=== PATIENT | male | born 1965 | race Caucasian/White ===

== ENCOUNTER 2016-10-23 10:21 | Emergency (ER) | payer SELFPAY ==
[~2016-10-23] VITALS: Ht 165.1 cm; Wt 66.9 kg
[~2016-10-23 10:21] MED LIST: FLEXERIL10 MG PO; NORVASC5 MG PO; PRAVACHOL40 MG PO; TYLENOL WITH C1 EACH PO
[2016-10-23] MEDS ORDERED: NORCO 5/3251 TABLET PO (12:27)
[2016-10-23] MEDS ORDERED: ACYCLOVIR200 MG PO (12:27)
[2016-10-23 12:41] VITALS: BP 184/90
== END 2016-10-23 12:42 | disposition home or self-care (01) ==
LOC: EME 10:21
DX: B02.9 Zoster without complications (principal); I10 Essential (primary) hypertension; F17.200 Nicotine dependence, unspecified, uncomplicated
CPT/HCPCS: 99281; 99283

== ENCOUNTER 2017-04-20 10:05 | Inpatient (IN) | payer OTHER ==
[~2017-04-20] VITALS: Ht 165.1 cm; Wt 71.3 kg
[~2017-04-20 10:05] MED LIST changes: +ACYCLOVIR200 MG PO; +NORCO 5/3251 TABLET PO
[2017-04-20 10:40] LABS: HEMATOCRIT 45.7 % (38.0-50.0); HEMOGLOBIN 16.8 G/DL (12.5-16.6); MCH 33.9 PG (29.0-34.0); MCHC 36.8 G/DL (30.0-36.0); MCV 92.1 FL (86-99); PLATELET COUNT 337 K/uL (156-360); RBC DIS.WIDTH-CV 12.7 % (11.8-14.6); RBC DIS.WIDTH-SD 42.5 % (39-53); RED BLOOD COUNT 4.96 M/uL (4.00-5.50); WHITE BLOOD COUNT 9.2 K/uL (4.1-10.2)
[2017-04-20 11:37] LABS: CHLORIDE 96 MEQ/L (99-109); CREATININE 0.9 MG/DL (0.6-1.3); GFR ESTIMATE (CALCULATED) > 59 mL/min/ (58.99-99999); GLUCOSE 102 mg/dL (70-99); POTASSIUM 4.4 MEQ/L (3.7-5.4); SODIUM 134 MEQ/L (136-147); UREA NITROGEN (BUN) 13 mg/dL (9-23)
[2017-04-20 14:00] LABS: HDL CHOLESTEROL 43 MG/DL (Desirable>=40); LDL CHOLESTEROL 120 mg/dL (Desirable<100); NON-HDL CHOLESTEROL 158 mg/dL (Desirable<160); TOTAL CHOLESTEROL 201 mg/dL (Desirable<200); TRIGLYCERIDES 188 MG/DL (Normal: <150)
[2017-04-20 14:28] LABS: TROP-I INTERPRETATION NEGATIVE; TROPONIN-I < 0.01 ng/mL (0.0-0.30)
[2017-04-20 15:05] VITALS: BP 158/88
[2017-04-20 19:16] LABS: TROP-I INTERPRETATION NEGATIVE; TROPONIN-I < 0.01 ng/mL (0.0-0.30)
[2017-04-20 20:09] VITALS: BP 161/88
[2017-04-20 23:54] VITALS: BP 133/78
[2017-04-21 02:06] LABS: TROP-I INTERPRETATION NEGATIVE; TROPONIN-I < 0.01 ng/mL (0.0-0.30)
[2017-04-21 04:10] VITALS: BP 140/72
[2017-04-21 07:12] LABS: CHLORIDE 99 MEQ/L (99-109); CREATININE 0.8 MG/DL (0.6-1.3); GFR ESTIMATE (CALCULATED) > 59 mL/min/ (58.99-99999); GLUCOSE 90 mg/dL (70-99); POTASSIUM 3.9 MEQ/L (3.7-5.4); SODIUM 132 MEQ/L (136-147); UREA NITROGEN (BUN) 12 mg/dL (9-23)
[2017-04-21 07:48] VITALS: BP 185/94
[2017-04-21 10:10] LABS: HEMOGLOBIN A1c (GLYCOHEMOGLOB) 5.1 % (Below 5.7)
[2017-04-21 12:00] VITALS: BP 157/88
[2017-04-21 16:00] VITALS: BP 162/94
[2017-04-21 19:51] VITALS: BP 151/93
[2017-04-21 23:42] VITALS: BP 166/85
[2017-04-22 03:46] VITALS: BP 161/92
[2017-04-22 07:11] VITALS: BP 168/83
[2017-04-22] MEDS ORDERED: NICOTINE PATCH1 EAC2 TD (11:01)
[2017-04-22] MEDS ORDERED: CLOPIDOGREL75 MG PO (11:02)
[2017-04-22] MEDS ORDERED: ASPIR-LOW81 MG PO (11:03)
[2017-04-22] MEDS ORDERED: LOSARTAN POTASS25 MG PO (11:03)
[2017-04-22] MEDS ORDERED: TYLENOL REGULA325 MG PO (11:04)
[2017-04-22 11:05] VITALS: BP 146/86
[2017-04-22] MEDS ORDERED: CHLORDIAZEPOXID25 MG PO (11:05)
[2017-04-22] MEDS ORDERED: FOLIC ACID1 MG PO (11:05)
[2017-04-22] MEDS ORDERED: THERAGRAN1 TABLET PO (11:06)
[2017-04-22] MEDS ORDERED: Thiamine,Vitamin B1 PO (11:06)
[2017-04-22] MEDS ORDERED: ATORVASTATIN CA40 MG PO (11:12)
[2017-04-23] MEDS ORDERED: ZYLOPRIM100 MG PO (12:17)
== END 2017-04-22 13:30 | DRG 65 ==
LOC: EME 10:05 → EDOF 13:03 → 5SOUTH 13:03 → ENRESERV 13:06 → 5SOUTH 14:56 → ENPENDDIS 04-22 13:10 → 5SOUTH 04-22 13:30
PROVIDERS: Internal Medicine
DX: I63.9 Cerebral infarction, unspecified (principal); E87.1 Hypo-osmolality and hyponatremia; I16.0 Hypertensive urgency; I10 Essential (primary) hypertension; R29.703 NIHSS score 3; H54.7 Unspecified visual loss; R27.0 Ataxia, unspecified; F10.239 Alcohol dependence with withdrawal, unspecified; F81.9 Developmental disorder of scholastic skills, unspecified; F17.200 Nicotine dependence, unspecified, uncomplicated; R29.6 Repeated falls
CPT/HCPCS: 70450; 70496; 70498; 70551; 71046; 80048; 80061; 83036; 83735; 84484; 85027; 93005; 93306; 99281; 99285; J1650; J7030

== ENCOUNTER 2017-04-22 11:56 | Inpatient (IN) | payer OTHER ==
[~2017-04-22] VITALS: Ht 165.1 cm; Wt 75.0 kg
[~2017-04-22 11:56] MED LIST changes: +ASPIR-LOW81 MG PO; +ATORVASTATIN CA40 MG PO; +CHLORDIAZEPOXID25 MG PO; +CLOPIDOGREL75 MG PO; +FOLIC ACID1 MG PO; +LOSARTAN POTASS25 MG PO; +NICOTINE PATCH1 EAC2 TD; +THERAGRAN1 TABLET PO; +TYLENOL REGULA325 MG PO; +Thiamine,Vitamin B1 PO
[2017-04-22 14:05] VITALS: BP 164/87
[2017-04-22 15:20] VITALS: BP 170/88
[2017-04-23 00:15] VITALS: BP 170/85
[2017-04-23 06:25] VITALS: BP 160/87
[2017-04-23 09:41] LABS: HEMATOCRIT 42.6 % (38.0-50.0); HEMOGLOBIN 14.9 G/DL (12.5-16.6); MCH 33.1 PG (29.0-34.0); MCV 94.7 FL (86-99); PLATELET COUNT 300 K/uL (156-360); RBC DIS.WIDTH-CV 13.1 % (11.8-14.6); RBC DIS.WIDTH-SD 45.5 % (39-53)
[2017-04-23 10:38] LABS: ALBUMIN 4.1 G/DL (3.2-4.8); ALKALINE PHOSPHATASE 55 IU/L (3-129); ALT (GPT) 20 IU/L (3-49); CHLORIDE 103 MEQ/L (99-109); CREATININE 0.9 MG/DL (0.6-1.3); GFR ESTIMATE (CALCULATED) > 59 mL/min/ (58.99-99999); GLUCOSE 103 mg/dL (70-99); SODIUM 137 MEQ/L (136-147); TOTAL BILIRUBIN 0.5 MG/DL (0.0-1.0); TOTAL PROTEIN 7.1 G/DL (6.4-8.3); UREA NITROGEN (BUN) 14 mg/dL (9-23)
[2017-04-23 10:40] LABS: AST (GOT) 29 IU/L (2-34); POTASSIUM 5.2 MEQ/L (3.7-5.4)
[2017-04-23 11:33] LABS: NO-CHARGE AST (GOT) 18 IU/L (15-37); POTASSIUM 4.2 MEQ/L (3.7-5.4)
[2017-04-23] MEDS ORDERED: ZYLOPRIM100 MG PO (12:17)
[2017-04-23 15:25] VITALS: BP 147/83
[2017-04-24 05:21] VITALS: BP 154/87
[2017-04-24 16:16] VITALS: BP 140/71
[2017-04-25 05:31] VITALS: BP 144/81
[2017-04-25 15:17] VITALS: BP 133/81
[2017-04-25 22:50] VITALS: BP 98/67
[2017-04-25 23:13] LABS: BASOPHIL (%) 0.3 % (0-1); BASOPHIL COUNT 0.1 K/uL (0-0.1); EOSINOPHIL (%) 0 % (0-5); HEMATOCRIT 37.7 % (38.0-50.0); HEMOGLOBIN 12.8 G/DL (12.5-16.6); LYMPHOCYTE (%) 22.4 % (15-42); LYMPHOCYTE COUNT 3.8 K/uL (1.0-2.8); MCH 32.8 PG (29.0-34.0); MCV 96.7 FL (86-99); MONOCYTE (%) 6.5 % (3-12); MONOCYTE COUNT 1.1 K/uL (0-0.8); NEUTROPHIL (%) 69.8 % (45-76); NEUTROPHIL COUNT 11.7 K/uL (1.8-6.4); PLATELET COUNT 363 K/uL (156-360); RBC DIS.WIDTH-CV 13.3 % (11.8-14.6); RBC DIS.WIDTH-SD 47.5 % (39-53); WHITE BLOOD COUNT 16.8 K/uL (4.1-10.2)
[2017-04-25 23:25] LABS: ALBUMIN 3.8 g/dL (3.2-4.8); CHLORIDE 104 mEq/L (99-109); SODIUM 134 mEq/L (136-147)
[2017-04-25 23:25] LABS: INTER. NORMALIZED RATIO 1.1
[2017-04-25 23:27] LABS: D-DIMER ELISA < 150.00 ng/mLDDU (<230); PTT 24.2 SEC (25-37)
[2017-04-25 23:28] LABS: TOTAL PROTEIN 6.7 g/dL (6.4-8.3)
[2017-04-25 23:29] LABS: TOTAL BILIRUBIN 0.3 mg/dL (0.0-1.0)
[2017-04-25 23:31] LABS: ALKALINE PHOSPHATASE 56 IU/L (3-129); CREATININE 1.1 mg/dL (0.6-1.3); GFR ESTIMATE (CALCULATED) > 59 mL/min/ (58.99-99999)
[2017-04-25 23:32] LABS: GLUCOSE 165 mg/dL (70-99); POTASSIUM 5.2 mEq/L (3.7-5.4)
[2017-04-25 23:33] LABS: AST (GOT) 29 IU/L (2-34); DIRECT BILIRUBIN 0.2 mg/dL (0.0-0.3)
[2017-04-25 23:34] LABS: ALT (GPT) 43 IU/L (3-49); TROP-I INTERPRETATION NEGATIVE; TROPONIN-I 0.03 ng/mL (0.0-0.30); UREA NITROGEN (BUN) 45 mg/dL (9-23)
[2017-04-25 23:47] LABS: PHOSPHORUS 2.1 mg/dL (2.5-4.9)
== END 2017-04-25 22:50 | DRG 57 ==
LOC: 3WEST 11:56
PROVIDERS: Hospitalist; Physical Medicine & Rehabilitation Pain Medicine
PROC: F07M0ZZ Range of Motion and Joint Mobility Treatment of Musculoskeletal System - Whole Body (ICD-10-PCS; principal; 2017-04-22)
DX: I69.354 Hemiplegia and hemiparesis following cerebral infarction affecting left non-dominant side (principal); I69.322 Dysarthria following cerebral infarction; I69.398 Other sequelae of cerebral infarction; R27.0 Ataxia, unspecified; R41.4 Neurologic neglect syndrome; K92.0 Hematemesis; R55 Syncope and collapse; I95.9 Hypotension, unspecified; J44.1 Chronic obstructive pulmonary disease with (acute) exacerbation; J44.0 Chronic obstructive pulmonary disease with (acute) lower respiratory infection; J20.9 Acute bronchitis, unspecified; E87.1 Hypo-osmolality and hyponatremia; I11.9 Hypertensive heart disease without heart failure; E78.5 Hyperlipidemia, unspecified; F10.20 Alcohol dependence, uncomplicated; R10.10 Upper abdominal pain, unspecified; R61 Generalized hyperhidrosis; F17.210 Nicotine dependence, cigarettes, uncomplicated; Z79.82 Long term (current) use of aspirin
CPT/HCPCS: 71045; 80053; 82248; 82948; 83605; 83735; 84100; 84484; 84999; 85025; 85027; 85379; 85610; 85730; 86850; 86900; 86901; 86920; 94640; 94640 76; 97110 GO; 97112 GO; 97530 GP; 99202; J1650; J7512

== ENCOUNTER 2017-04-25 23:03 | Inpatient (IN) | payer OTHER ==
[~2017-04-25] VITALS: Ht 165.1 cm; Wt 65.3 kg
[2017-04-25 23:00] VITALS: BP 146/85; BP 146/87
[~2017-04-25 23:03] MED LIST changes: +ZYLOPRIM100 MG PO
[2017-04-25 23:20] VITALS: BP 130/93
[2017-04-25 23:30] VITALS: BP 156/89
[2017-04-26] VITALS (25 sets, daily range): BP systolic 78–290; BP diastolic 52–119
[2017-04-26 00:45] LABS: HEMATOCRIT 32.3 % (38.0-50.0); HEMOGLOBIN 11.1 G/DL (12.5-16.6); MCV 99.1 FL (86-99)
[2017-04-26 01:29] LABS: BASE EXCESS -3.5 mEq/L (-3 to +3); BICARBONATE 24.7 mEq/L (22-26); CARBOXY HGB 1.9 % (0-5); COMMENTS - BLOOD GASES C+; DEVICE 980; FI02 100 %; METHEMOGLOBIN 1.6 % (0-1.5); PCO2 59 mm Hg (35-45); PO2 358 mm Hg (80-100); SITE A-LINE
[2017-04-26 01:30] LABS: MECHANICAL RATE 16 resp/min; MODE AC; PEEP 5 CM/H20; TIDAL VOLUME 450 ML; TOTAL RESP RATE 16 resp/min; pH 7.23 (7.35-7.45)
[2017-04-26 02:24] LABS: HEMATOCRIT 36.9 % (38.0-50.0); HEMOGLOBIN 12.3 G/DL (12.5-16.6); MCH 31.5 PG (29.0-34.0); MCHC 33.3 G/DL (30.0-36.0); MCV 94.6 FL (86-99); PLATELET COUNT 304 K/uL (156-360); RBC DIS.WIDTH-CV 15.1 % (11.8-14.6); RBC DIS.WIDTH-SD 52.2 % (39-53); WHITE BLOOD COUNT 16.5 K/uL (4.1-10.2)
[2017-04-26 06:32] LABS: BASE EXCESS -6.1 mEq/L (-3 to +3); BICARBONATE 20.2 mEq/L (22-26); CARBOXY HGB 1.8 % (0-5); METHEMOGLOBIN 1.8 % (0-1.5)
[2017-04-26 06:33] LABS: COMMENTS - BLOOD GASES C+; DEVICE 980; FI02 50 %; INSPIRATION TIME 0 seconds; INSPIRATORY/EXPIRATORY RATIO 0.9 RATIO; MECHANICAL RATE 20 resp/min; MODE AC/VC+; PCO2 42 mm Hg (35-45); PEEP 5 CM/H20; PO2 151 mm Hg (80-100); TIDAL VOLUME 450 ML; TOTAL RESP RATE 21 resp/min
[2017-04-26 06:34] LABS: pH 7.29 (7.35-7.45)
[2017-04-26 08:35] LABS: HEMATOCRIT 32.2 % (38.0-50.0); HEMATOCRIT 32.3 % (38.0-50.0); HEMOGLOBIN 11.2 G/DL (12.5-16.6); MCH 32.2 PG (29.0-34.0); MCHC 34.8 G/DL (30.0-36.0); MCV 92.5 FL (86-99); MCV 92.8 FL (86-99); PLATELET COUNT 218 K/uL (156-360); RBC DIS.WIDTH-CV 17.7 % (11.8-14.6); RED BLOOD COUNT 3.48 M/uL (4.00-5.50); WHITE BLOOD COUNT 13.4 K/uL (4.1-10.2)
[2017-04-26 08:47] LABS: INTER. NORMALIZED RATIO 1.1
[2017-04-26 08:49] LABS: PTT 25.7 SEC (25-37)
[2017-04-26 09:02] LABS: CHLORIDE 109 MEQ/L (99-109); CREATININE 0.7 MG/DL (0.6-1.3); GFR ESTIMATE (CALCULATED) > 59 mL/min/ (58.99-99999); MAGNESIUM 1.5 mg/dl (1.3-2.7); PHOSPHORUS 2.6 mg/dL (2.5-4.9); POTASSIUM 4.3 MEQ/L (3.7-5.4); SODIUM 138 MEQ/L (136-147); UREA NITROGEN (BUN) 41 mg/dL (9-23)
[2017-04-26 09:03] LABS: GLUCOSE 119 mg/dL (70-99)
[2017-04-26 16:02] LABS: HEMATOCRIT 26.9 % (38.0-50.0); HEMOGLOBIN 9.3 G/DL (12.5-16.6); MCV 91.8 FL (86-99)
[2017-04-27] VITALS (9 sets, daily range): BP systolic 124–159; BP diastolic 57–84
[2017-04-27 00:45] LABS: HEMATOCRIT 26.9 % (38.0-50.0); HEMOGLOBIN 9.4 G/DL (12.5-16.6); MCH 31.4 PG (29.0-34.0); MCHC 34.9 G/DL (30.0-36.0); PLATELET COUNT 202 K/uL (156-360); RBC DIS.WIDTH-CV 17.3 % (11.8-14.6); RBC DIS.WIDTH-SD 56.2 % (39-53); RED BLOOD COUNT 2.99 M/uL (4.00-5.50); WHITE BLOOD COUNT 13.6 K/uL (4.1-10.2)
[2017-04-27 07:37] LABS: HEMATOCRIT 27.1 % (38.0-50.0); HEMOGLOBIN 9.5 G/DL (12.5-16.6); MCH 31.7 PG (29.0-34.0); MCHC 35.1 G/DL (30.0-36.0); MCV 90.3 FL (86-99); PLATELET COUNT 225 K/uL (156-360); RBC DIS.WIDTH-CV 17.3 % (11.8-14.6); RBC DIS.WIDTH-SD 55.8 % (39-53); WHITE BLOOD COUNT 12.7 K/uL (4.1-10.2)
[2017-04-27 16:01] LABS: HEMATOCRIT 25.8 % (38.0-50.0); HEMOGLOBIN 8.9 G/DL (12.5-16.6); MCH 31.1 PG (29.0-34.0); MCHC 34.5 G/DL (30.0-36.0); MCV 90.2 FL (86-99); PLATELET COUNT 207 K/uL (156-360); RBC DIS.WIDTH-CV 16.8 % (11.8-14.6); RBC DIS.WIDTH-SD 54.9 % (39-53); RED BLOOD COUNT 2.86 M/uL (4.00-5.50); WHITE BLOOD COUNT 11.2 K/uL (4.1-10.2)
[2017-04-27 19:46] LABS: HEMATOCRIT 25.7 % (38.0-50.0); HEMOGLOBIN 8.9 G/DL (12.5-16.6); MCV 90.8 FL (86-99)
[2017-04-28 04:29] LABS: HEMATOCRIT 26.7 % (38.0-50.0); HEMOGLOBIN 9.5 G/DL (12.5-16.6); MCH 31.9 PG (29.0-34.0); MCHC 35.6 G/DL (30.0-36.0); MCV 89.6 FL (86-99); PLATELET COUNT 243 K/uL (156-360); RBC DIS.WIDTH-CV 16.2 % (11.8-14.6); RBC DIS.WIDTH-SD 52.9 % (39-53); RED BLOOD COUNT 2.98 M/uL (4.00-5.50); WHITE BLOOD COUNT 10.5 K/uL (4.1-10.2)
[2017-04-28 08:00] VITALS: BP 138/77
[2017-04-28 12:00] VITALS: BP 167/85
[2017-04-28 16:00] VITALS: BP 160/81
[2017-04-28 16:01] LABS: HEMATOCRIT 28.7 % (38.0-50.0); HEMOGLOBIN 9.8 G/DL (12.5-16.6); MCH 31.3 PG (29.0-34.0); MCHC 34.1 G/DL (30.0-36.0); MCV 91.7 FL (86-99); PLATELET COUNT 240 K/uL (156-360); RBC DIS.WIDTH-CV 16.1 % (11.8-14.6); RBC DIS.WIDTH-SD 53.2 % (39-53); RED BLOOD COUNT 3.13 M/uL (4.00-5.50); WHITE BLOOD COUNT 9.3 K/uL (4.1-10.2)
[2017-04-28 20:01] VITALS: BP 152/70
[2017-04-29 00:01] VITALS: BP 162/79
[2017-04-29 04:00] VITALS: BP 182/85
[2017-04-29 04:53] LABS: BASOPHIL (%) 0.4 % (0-1); EOSINOPHIL (%) 0.8 % (0-5); EOSINOPHIL COUNT 0.1 K/uL (0-0.3); HEMATOCRIT 28.1 % (38.0-50.0); HEMOGLOBIN 9.8 G/DL (12.5-16.6); LYMPHOCYTE (%) 17.6 % (15-42); LYMPHOCYTE COUNT 1.9 K/uL (1.0-2.8); MCH 31.5 PG (29.0-34.0); MCHC 34.9 G/DL (30.0-36.0); MCV 90.4 FL (86-99); MONOCYTE (%) 7.7 % (3-12); MONOCYTE COUNT 0.8 K/uL (0-0.8); NEUTROPHIL (%) 72.5 % (45-76); NEUTROPHIL COUNT 7.7 K/uL (1.8-6.4); PLATELET COUNT 273 K/uL (156-360); RBC DIS.WIDTH-CV 15.7 % (11.8-14.6); RBC DIS.WIDTH-SD 51.1 % (39-53); RED BLOOD COUNT 3.11 M/uL (4.00-5.50); WHITE BLOOD COUNT 10.6 K/uL (4.1-10.2)
[2017-04-29 05:05] LABS: CHLORIDE 106 mEq/L (99-109); POTASSIUM 3.9 mEq/L (3.7-5.4); SODIUM 139 mEq/L (136-147)
[2017-04-29 05:06] LABS: MAGNESIUM 1.7 mg/dL (1.3-2.7)
[2017-04-29 05:07] LABS: GLUCOSE 94 mg/dL (70-99)
[2017-04-29 05:11] LABS: CREATININE 0.7 mg/dL (0.6-1.3); GFR ESTIMATE (CALCULATED) > 59 mL/min/ (58.99-99999)
[2017-04-29 05:12] LABS: UREA NITROGEN (BUN) 13 mg/dL (9-23)
[2017-04-29 08:01] VITALS: BP 147/60
[2017-04-29 12:09] VITALS: BP 162/79
[2017-04-29 15:40] LABS: HEMATOCRIT 29.3 % (38.0-50.0); MCH 30.9 PG (29.0-34.0); MCHC 34.1 G/DL (30.0-36.0); MCV 90.4 FL (86-99); PLATELET COUNT 292 K/uL (156-360); RBC DIS.WIDTH-CV 15.5 % (11.8-14.6); RBC DIS.WIDTH-SD 50.7 % (39-53); RED BLOOD COUNT 3.24 M/uL (4.00-5.50); WHITE BLOOD COUNT 9.8 K/uL (4.1-10.2)
[2017-04-29 16:01] VITALS: BP 139/72
[2017-04-29 19:00] VITALS: BP 129/55
[2017-04-30] VITALS (12 sets, daily range): BP systolic 115–168; BP diastolic 59–88
[2017-04-30 05:23] LABS: BASOPHIL (%) 0.4 % (0-1); EOSINOPHIL (%) 1.9 % (0-5); EOSINOPHIL COUNT 0.2 K/uL (0-0.3); HEMATOCRIT 27.1 % (38.0-50.0); HEMOGLOBIN 9.1 G/DL (12.5-16.6); IMMATURE GRANULOCYTE (%) 1.1 % (0.0-0.7); LYMPHOCYTE (%) 26.9 % (15-42); LYMPHOCYTE COUNT 2.1 K/uL (1.0-2.8); MCH 30.1 PG (29.0-34.0); MCHC 33.6 G/DL (30.0-36.0); MCV 89.7 FL (86-99); MONOCYTE (%) 11.1 % (3-12); MONOCYTE COUNT 0.9 K/uL (0-0.8); NEUTROPHIL (%) 58.6 % (45-76); NEUTROPHIL COUNT 4.6 K/uL (1.8-6.4); PLATELET COUNT 296 K/uL (156-360); RBC DIS.WIDTH-CV 15.5 % (11.8-14.6); RED BLOOD COUNT 3.02 M/uL (4.00-5.50); WHITE BLOOD COUNT 7.9 K/uL (4.1-10.2)
[2017-04-30 06:09] LABS: MAGNESIUM 1.7 mg/dl (1.3-2.7)
[2017-05-01] VITALS (21 sets, daily range): BP systolic 107–157; BP diastolic 53–95
[2017-05-01 06:08] LABS: BASOPHIL (%) 0.6 % (0-1); BASOPHIL COUNT 0.1 K/uL (0-0.1); EOSINOPHIL (%) 1.8 % (0-5); EOSINOPHIL COUNT 0.2 K/uL (0-0.3); HEMATOCRIT 29.1 % (38.0-50.0); IMMATURE GRANULOCYTE (%) 1.2 % (0.0-0.7); LYMPHOCYTE (%) 27.7 % (15-42); LYMPHOCYTE COUNT 2.4 K/uL (1.0-2.8); MCH 30.9 PG (29.0-34.0); MCHC 34.4 G/DL (30.0-36.0); MCV 89.8 FL (86-99); MONOCYTE (%) 9.6 % (3-12); MONOCYTE COUNT 0.8 K/uL (0-0.8); NEUTROPHIL (%) 59.1 % (45-76); PLATELET COUNT 344 K/uL (156-360); RBC DIS.WIDTH-CV 15.2 % (11.8-14.6); RED BLOOD COUNT 3.24 M/uL (4.00-5.50); WHITE BLOOD COUNT 8.5 K/uL (4.1-10.2)
[2017-05-01 06:31] LABS: MAGNESIUM 1.8 mg/dl (1.3-2.7); PHOSPHORUS 4.3 mg/dL (2.5-4.9)
[2017-05-02 04:13] VITALS: BP 133/67
[2017-05-02 06:25] LABS: MAGNESIUM 1.8 mg/dl (1.3-2.7); PHOSPHORUS 4.3 mg/dL (2.5-4.9)
[2017-05-02 07:50] VITALS: BP 152/75
[2017-05-02 08:59] LABS: HEMATOCRIT 30.9 % (38.0-50.0); HEMOGLOBIN 10.6 G/DL (12.5-16.6); MCH 30.9 PG (29.0-34.0); MCHC 34.3 G/DL (30.0-36.0); MCV 90.1 FL (86-99); PLATELET COUNT 447 K/uL (156-360); RBC DIS.WIDTH-CV 15.5 % (11.8-14.6); RBC DIS.WIDTH-SD 50.4 % (39-53); RED BLOOD COUNT 3.43 M/uL (4.00-5.50); WHITE BLOOD COUNT 7.8 K/uL (4.1-10.2)
[2017-05-02 09:07] LABS: ALBUMIN 3.6 G/DL (3.2-4.8); ALKALINE PHOSPHATASE 63 IU/L (3-129); ALT (GPT) 15 IU/L (3-49); AST (GOT) 16 IU/L (2-34); CHLORIDE 99 MEQ/L (99-109); CREATININE 0.7 MG/DL (0.6-1.3); GFR ESTIMATE (CALCULATED) > 59 mL/min/ (58.99-99999); GLUCOSE 97 mg/dL (70-99); POTASSIUM 3.7 MEQ/L (3.7-5.4); SODIUM 138 MEQ/L (136-147); TOTAL BILIRUBIN 0.6 MG/DL (0.0-1.0); TOTAL PROTEIN 6.4 G/DL (6.4-8.3); UREA NITROGEN (BUN) 14 mg/dL (9-23)
[2017-05-02 23:36] VITALS: BP 148/70
[2017-05-03 06:37] LABS: MAGNESIUM 1.9 mg/dl (1.3-2.7); PHOSPHORUS 4.3 mg/dL (2.5-4.9)
[2017-05-03 07:36] VITALS: BP 144/71
[2017-05-03 10:21] LABS: HEMATOCRIT 31.1 % (38.0-50.0); HEMOGLOBIN 10.6 G/DL (12.5-16.6); MCV 88.9 FL (86-99)
[2017-05-03 16:25] VITALS: BP 128/78
[2017-05-03 20:00] VITALS: BP 158/81
[2017-05-04] VITALS (8 sets, daily range): BP systolic 117–150; BP diastolic 62–88
[2017-05-04 06:25] LABS: BASOPHIL (%) 0.7 % (0-1); BASOPHIL COUNT 0.1 K/uL (0-0.1); EOSINOPHIL (%) 1.2 % (0-5); EOSINOPHIL COUNT 0.1 K/uL (0-0.3); HEMATOCRIT 28.2 % (38.0-50.0); HEMOGLOBIN 9.6 G/DL (12.5-16.6); IMMATURE GRANULOCYTE (%) 0.7 % (0.0-0.7); LYMPHOCYTE (%) 33.7 % (15-42); LYMPHOCYTE COUNT 2.8 K/uL (1.0-2.8); MCH 30.5 PG (29.0-34.0); MCV 89.5 FL (86-99); MONOCYTE (%) 8.6 % (3-12); MONOCYTE COUNT 0.7 K/uL (0-0.8); NEUTROPHIL (%) 55.1 % (45-76); NEUTROPHIL COUNT 4.6 K/uL (1.8-6.4); PLATELET COUNT 548 K/uL (156-360); RBC DIS.WIDTH-CV 15.7 % (11.8-14.6); RBC DIS.WIDTH-SD 50.5 % (39-53); RED BLOOD COUNT 3.15 M/uL (4.00-5.50); WHITE BLOOD COUNT 8.3 K/uL (4.1-10.2)
[2017-05-04 06:47] LABS: ALBUMIN 3.5 G/DL (3.2-4.8); ALKALINE PHOSPHATASE 58 IU/L (3-129); ALT (GPT) 22 IU/L (3-49); AST (GOT) 19 IU/L (2-34); CHLORIDE 99 MEQ/L (99-109); CREATININE 0.7 MG/DL (0.6-1.3); GFR ESTIMATE (CALCULATED) > 59 mL/min/ (58.99-99999); GLUCOSE 101 mg/dL (70-99); MAGNESIUM 1.7 mg/dl (1.3-2.7); PHOSPHORUS 4.1 mg/dL (2.5-4.9); SODIUM 137 MEQ/L (136-147); TOTAL BILIRUBIN 0.5 MG/DL (0.0-1.0); TOTAL PROTEIN 6.2 G/DL (6.4-8.3); UREA NITROGEN (BUN) 19 mg/dL (9-23)
[2017-05-05 03:48] VITALS: BP 164/73
[2017-05-05 06:17] LABS: BASOPHIL (%) 0.8 % (0-1); BASOPHIL COUNT 0.1 K/uL (0-0.1); EOSINOPHIL (%) 1.2 % (0-5); EOSINOPHIL COUNT 0.1 K/uL (0-0.3); HEMATOCRIT 28.8 % (38.0-50.0); HEMOGLOBIN 9.7 G/DL (12.5-16.6); IMMATURE GRANULOCYTE (%) 0.4 % (0.0-0.7); LYMPHOCYTE (%) 33.4 % (15-42); LYMPHOCYTE COUNT 2.6 K/uL (1.0-2.8); MCH 29.8 PG (29.0-34.0); MCHC 33.7 G/DL (30.0-36.0); MCV 88.6 FL (86-99); MONOCYTE (%) 8.3 % (3-12); MONOCYTE COUNT 0.7 K/uL (0-0.8); NEUTROPHIL (%) 55.9 % (45-76); NEUTROPHIL COUNT 4.4 K/uL (1.8-6.4); PLATELET COUNT 585 K/uL (156-360); RBC DIS.WIDTH-CV 15.4 % (11.8-14.6); RBC DIS.WIDTH-SD 49.9 % (39-53); RED BLOOD COUNT 3.25 M/uL (4.00-5.50); WHITE BLOOD COUNT 7.8 K/uL (4.1-10.2)
[2017-05-05 06:48] LABS: CHLORIDE 98 MEQ/L (99-109); CREATININE 0.7 MG/DL (0.6-1.3); GFR ESTIMATE (CALCULATED) > 59 mL/min/ (58.99-99999); GLUCOSE 87 mg/dL (70-99); MAGNESIUM 1.7 mg/dl (1.3-2.7); PHOSPHORUS 4.2 mg/dL (2.5-4.9); SODIUM 137 MEQ/L (136-147); UREA NITROGEN (BUN) 14 mg/dL (9-23)
[2017-05-05 07:04] VITALS: BP 136/78
[2017-05-05 11:27] VITALS: BP 144/80
[2017-05-05] MEDS ORDERED: PANTOPRAZOLE SO40 MG PO (15:10)
[2017-05-05] MEDS ORDERED: LEVETIRACETAM750 MG PO (15:10)
[2017-05-05 16:02] VITALS: BP 139/76
== END 2017-05-05 17:03 | DRG 368 ==
LOC: ENRESERV 23:03 → 4WEST 23:03 → ENRESERV 05-01 13:12 → 5SOUTH 05-01 20:32
PROVIDERS: Emergency Medicine; Hospitalist; Internal Medicine Critical Care Medicine; Specialist; Surgery
PROC: 30233N1 Transfusion of Nonautologous Red Blood Cells into Peripheral Vein, Percutaneous Approach (ICD-10-PCS; principal; 2017-04-25)
PROC: 30253R1 (ICD-10-PCS; 2017-04-26)
PROC: 30233K1 Transfusion of Nonautologous Frozen Plasma into Peripheral Vein, Percutaneous Approach (ICD-10-PCS; 2017-04-26)
PROC: 0BH17EZ Insertion of Endotracheal Airway into Trachea, Via Natural or Artificial Opening (ICD-10-PCS; 2017-04-26)
PROC: 03HY32Z Insertion of Monitoring Device into Upper Artery, Percutaneous Approach (ICD-10-PCS; 2017-04-26)
PROC: 4A133B1 Monitoring of Arterial Pressure, Peripheral, Percutaneous Approach (ICD-10-PCS; 2017-04-26)
PROC: 05H633Z Insertion of Infusion Device into Left Subclavian Vein, Percutaneous Approach (ICD-10-PCS; 2017-04-26)
PROC: 4A133J1 Monitoring of Arterial Pulse, Peripheral, Percutaneous Approach (ICD-10-PCS; 2017-04-26)
PROC: 0W3P8ZZ Control Bleeding in Gastrointestinal Tract, Via Natural or Artificial Opening Endoscopic (ICD-10-PCS; 2017-04-26)
PROC: 3E0G8TZ Introduction of Destructive Agent into Upper GI, Via Natural or Artificial Opening Endoscopic (ICD-10-PCS; 2017-04-26)
PROC: 5A1945Z Respiratory Ventilation, 24-96 Consecutive Hours (ICD-10-PCS; 2017-04-26)
DX: K22.6 Gastro-esophageal laceration-hemorrhage syndrome (principal); J96.00 Acute respiratory failure, unspecified whether with hypoxia or hypercapnia; J69.0 Pneumonitis due to inhalation of food and vomit; R57.8 Other shock; J44.1 Chronic obstructive pulmonary disease with (acute) exacerbation; I69.354 Hemiplegia and hemiparesis following cerebral infarction affecting left non-dominant side; D62 Acute posthemorrhagic anemia; E87.2 Acidosis; I10 Essential (primary) hypertension; E78.00 Pure hypercholesterolemia, unspecified; E78.5 Hyperlipidemia, unspecified; F17.210 Nicotine dependence, cigarettes, uncomplicated; I95.89 Other hypotension; R13.10 Dysphagia, unspecified; R61 Generalized hyperhidrosis; F10.20 Alcohol dependence, uncomplicated; Z87.19 Personal history of other diseases of the digestive system; Z79.82 Long term (current) use of aspirin; Y90.9 Presence of alcohol in blood, level not specified
CPT/HCPCS: 36600; 70450; 70551; 71045; 80048; 80053; 82330; 82803; 83605; 83735; 84100; 84484; 85014; 85018; 85025; 85027; 85610; 85730; 86850; 86900; 86901; 86920; 87070; 87205; 87641; 92523 GN; 92526 GN; 92610 GN; 93005; 94002; 94003; 94640; 94640 76; 94760; 94799; 97530 GO; 97530 GP; 99202; C1751; C9113; J0295; J0360; J1364; J1953; J2060; J2354; J2405; J2704; J3010; J3411; J3480; J7030; J7050; P9016; P9017; P9035